=== PATIENT | male | born 1935 | race Caucasian/White ===

== ENCOUNTER 2016-11-18 16:09 | Inpatient (IN) | payer MEDICARE ==
[~2016-11-18] VITALS: Ht 180.3 cm; Wt 121.4 kg
--- NOTE | ~2016-11-18 | ECH ---
Transthoracic Echocardiography Report (TTE) Demographics Patient Name TAL PARADA Date of Study 11/19/2016 Patient Number [id number] Visit Number [id number] Date of 1935 Room Number 432 Accession Number [id number] Gender Male Age 81 year(s) Referring Caty Guidry MD Chief Unit Forester Kera Velez [facility] Physician Physician Interpreting Armond Resendiz Psychiatric Aide Physician MD Supervising Ordering Physician Caty Guidry MD, MD/P Nurse Stress Store Planner Conclusions Summary Technically fair exam. The estimated left ventricular ejection fraction is 55%. Moderate to severe concentric left ventricular hypertrophy. Mildly dilated right ventricle with normal systolic function. The left atrium is mildly dilated by LA volume index measurement. There is no evidence of patent foramen ovale or atrial septal defect by color Doppler. No significant valvular abnormalities. The ascending aorta appears mildly dilated. The maximum diameter measures 3.5 cm. Procedure Type of Study TTE procedure:Echo Complete SF. Procedure Date Date: 11/19/2016 Start: 11:04 AM Technical Quality: Adequate visualization Indications:CVA, Atrial fibrillation and Hypertension. Additional Indications:ordered without bubble study Appropriate Use Criteria: 9 Height: 71 inches Weight: 267 pounds BSA: 2.38 m Rhythm: Paced HR: 66 bpm BP: 173/89 mmHg M-Mode/2D Measurements LV Diastolic Dimension: 3.53 cm LV Systolic Dimension: 3.23 cm LV Septum Diastolic: 1.77 cm LV PW Diastolic: 1.71 cm AO Root Dimension: 2.85 cm Cardiac Output: 5.43 l/min LA Dimension: 4.57 cm Cardiac Index: 2.28 l/min*m RV Diastolic Dimension: 3.66 cm LA volume index: 35 ml/m LVOT: 2.17 cm LVOT VTI: 22.25 cm RV Base: 4.7 cm LV Stroke volume: 82.25 ml RV Mid: 3.5 cm LV Stroke volume index: 34.56 ml/m RV Length: 5.8 cm TAPSE: 2.9 cm TDI-S': 20 cm/s Doppler Measurements AV Peak Velocity: 1.18 m/s MV Peak E-Wave: 1.1 m/s AV Peak Gradient: 5.57 mmHg AV Mean Gradient: 2.56 mmHg MV P1/2t: 67 msec LVOT Peak Velocity: 1.09 m/s AV Area (Continuity):5.1 cm MV Area (PHT): 3.28 cm TR Velocity:2.53 m/s TR Gradient:25.52 mmHg Estimated PASP: 30.52 mmHg Estimated RAP:5 mmHg Estimated RVSP: 31 mmHg RA Area: 23.7 cm Findings Left Ventricle The left ventricle is normal in size . Severe concentric left ventricular hypertrophy. Diastolic function indeterminate due to patient's arrhythmia. Right Ventricle Mildly dilated right ventricle with normal systolic function. Device lead noted in the right ventricle. Left Atrium The left atrium is mildly dilated by LA volume index measurement. There is no evidence of patent foramen ovale or atrial septal defect by color Doppler. Right Atrium The right atrium is mild to moderately dilated. Device lead seen in the right atrium. Mitral Valve Normal mitral valve structure and function. Trivial mitral regurgitation by color Doppler. Aortic Valve The aortic valve was not well imaged. Tricuspid Valve Normal tricuspid valve structure and function. Mild tricuspid regurgitation by color Doppler. Estimated pulmonary pressures within normal limits. Pulmonic Valve Normal pulmonic valve structure and function. Pericardial Effusion No evidence of pericardial effusion. Miscellaneous The ascending aorta appears mildly dilated. The maximum diameter measures 3.5 cm. Pleural Effusion No evidence of pleural effusion. Contractility Score LV regional wall motion:(0-Non visualized 1-Normal 2-Hypokinesis 3-Akinesis 4-Dyskinesis 5-Aneurysm) Signature
--- NOTE | 2016-11-20 15:02 | HP ---
ADMIT: 11/18/2016 RM/LOC: 432 [facility] MR#: [id number] [address] [place], [place] [address] TAL PARADA [address] [place] [address] History and Physical SEX: M AGE: 81 : 1935 DATE OF SERVICE: CHIEF COMPLAINT: Unsteadiness. HISTORY OF PRESENT ILLNESS: The patient is an 81-year-old gentleman, normally receives his care exclusively through the [facility]. He reports about a 2 to 3 day history of just overall not feeling right, feels a little unsteady and somewhat lost when he had been in his own home as well as when driving, just does not feel like himself, some mild confusion almost. Otherwise, denies any weakness, numbness, tingling in extremities. No trouble swallowing. No cough. No recent fevers, chills, nausea, or vomiting. [facility] about [facility] 2 weeks. States he has been high as well as a little bit low in the past, but overall as a rule he is mostly therapeutic in regard to his Coumadin. He has been on it for 4 years, has been a little more erratic now than he was years ago when he 1st started he states. [facility] of [facility] and was subsequently evaluated in the emergency room here. He recently had some visual changes in 1 eye, just feels like he cannot see as well. He went to see an day habilitation supervisor, stated he had a retinal problem. He plans on seeing retinal specialist soon. Has not worsen at all. PAST MEDICAL HISTORY: 1. AFib, status post pacemaker, on chronic anticoagulation. 2. BPH. FAMILY HISTORY: Significant for heart disease in a brother. Otherwise, no strokes that he is aware of. SOCIAL HISTORY: Lives with his . Spends time between [place] and here. Still avidly works. No smoking history. REVIEW OF SYSTEMS: As per HPI. Otherwise, completely reviewed and negative. MEDICATIONS: He is on: 1. Alfuzosin. 2. Allopurinol. 3. Vitamin D3. 4. Lisinopril. 5. Metoprolol. 6. Viagra p.r.n. 7. Trospium p.r.n. 8. Warfarin. 9. Aspirin 81 mg a day. Please see list for full details. PHYSICAL EXAMINATION: VITAL SIGNS: Temperature 97.2, pulse 60, respiratory rate 20, blood pressure 163/87, O2 saturation 97% on room air. GENERAL: He is alert and oriented x3, in no acute distress, very comfortable ADMIT: 11/18/2016 RM/LOC: 432 [facility] MR#: [id number] [address] [address] [facility] TAL SMITH [address] [place] [address] History and Physical SEX: M AGE: 81 : 1935 and very pleasant. HEENT: Normocephalic, atraumatic. Pupils equal, round, and reactive to light and accommodation. Extraocular muscles intact. Moist mucous membranes. NECK: No lymphadenopathy. Soft, supple. Trachea midline. LUNGS: Clear to auscultation bilaterally. No wheezes, rales, or rhonchi. HEART: Regular rate and rhythm. No murmurs, rubs, or gallops. ABDOMEN: Soft, nontender, nondistended. Bowel sounds present. EXTREMITIES: No cyanosis, clubbing, or edema. MUSCULOSKELETAL: 5/5 strength in all 4 extremities. NEUROLOGICAL: No focal deficits noted. Cranial nerves II through XII grossly intact. No facial droop. SKIN: No rashes noted. Dry. PSYCHIATRIC: Very pleasant, normal affect, interacts well with others. LABORATORY AND X-RAY DATA: His INR is 2.3, creatinine 1.2, AST normal at 24. White blood count 8.8, hemoglobin 15.0, platelets 222, potassium 4.2, ALT 18. CT scan of his head shows an area of the low attenuation in medial right posterior parietal lobes suspicious for acute non-hemorrhagic ischemia, low attenuation in the left posterior parietal lobe, probable chronic deep white matter change. ASSESSMENT: 1. Acute stroke. 2. Atrial fibrillation. 3. Hypertension. PLAN: At this point in time, we will allow some permissive hypertension, have Therapy Services see him. We will continue his Coumadin and watch his INR closely. We will get a cardiac duplex ultrasound, lipids, TTE. Await workup. The patient is agreeable to this. Caio Byrne MD/ colby JOB #: [id number] CC: Caio Byrne, Attending Physician Caio Byrne, Family Physician
--- NOTE | 2016-11-20 15:06 | DS ---
ADMIT: 11/18/2016 RM/LOC: 432 [facility] MR#: [id number] [address] [address] TAL PARADA [address] [place] [address] Discharge Summary SEX: M AGE: 81 : 1935 ADMISSION DATE: 11/18/2016 DISCHARGE DATE: 11/19/2016 CONSULTATIONS: None. PROCEDURES: None. FINAL DIAGNOSES: 1. Acute stroke. 2. Hypertension. 3. Atrial fibrillation, on chronic anticoagulation. REASON FOR ADMISSION: The patient is an 81-year-old gentleman, who presented to the emergency room with some confusion, overall not feeling like himself. He ultimately had an extensive workup with a CT scan of his head showing acute stroke, an area of low attenuation medial right posterior parietal lobe. Admitted for further stabilization. The patient's carotid ultrasound showed minimal atherosclerotic disease. Had an echocardiogram with no valvular abnormalities, overall okay. Some LVH. The patient had his lipids checked. LDL was 44. He was therapeutic at 2.35 on his INR when he came in. It was 2.0 when he left. He overall felt safe and stable. His confusion was overall better. He had no troubles with his gait. No residual effect from the stroke. [place] safe and stable for discharge to home. He was seen by therapy services. DISCHARGE INSTRUCTIONS: He will discharge to home and see the [place] primary care provider within the next week. He will follow up for therapy services through his [place] primary care provider, if needed as an outpatient. DISCHARGE MEDICATIONS: For medications he will continue on: 1. Metoprolol. 2. Trospium. 3. Warfarin. 4. Aspirin. 5. Allopurinol. 6. Alfuzosin. 7. Lisinopril. We doubled his lisinopril to 40 mg twice daily. Otherwise, he will remain on his home medications. He will follow up in clinic at the [place]. The patient is agreeable to plan. Caio Byrne MD/ livanf JOB #: [id number] CC: Caio Byrne MD, Attending Physician ADMIT: 11/18/2016 RM/LOC: 432 [facility] MR#: [id number] [facility] [address] [address] TAL PARADA [address] [place] [address] Discharge Summary SEX: M AGE: 81 : 1935 Caio Byrne MD, Family Physician
[2016-11-20] MEDS ORDERED: UROXATRAL10 MG PO (18:04)
[2016-11-20] MEDS ORDERED: LUBRICANT EYE15 M1 OU (18:05)
[2016-11-20] MEDS ORDERED: VITAMIN D-32000 UNI1 PO (18:05)
[2016-11-20] MEDS ORDERED: ZESTRIL DPS40 MG PO (18:05)
[2016-11-20] MEDS ORDERED: ZYLOPRIM-DPS100 MG PO (18:05)
[2016-11-20] MEDS ORDERED: LOPRESSOR DPS50 MG PO (18:06)
[2016-11-20] MEDS ORDERED: SANCTURA20 MG PO (18:06)
[2016-11-20] MEDS ORDERED: COUMADIN6 MG PO (18:06)
[2016-11-20] MEDS ORDERED: COUMADIN4 MG PO (18:07)
[2016-11-20] MEDS ORDERED: ADULT LOW DOSE81 MG PO (18:08)
--- NOTE | 2016-11-23 10:38 | ER ---
ADMIT: 11/18/2016 RM/LOC: 432 [facility] MR#: [id number] [address] [facility] [id number] [place], [place] [address] TAL PARADA [address] [place] [address] Emergency Room Report SEX: M AGE: 81 : 1935 DATE: 11/18/2016 ADDENDUM.: An 81-year-old white male coming in with a little bouts of confusion, [facility], and [facility] had shipped him over here. CT scan does show an area of low attenuation right posterior parietal lobe nonhemorrhagic ischemia as well as left parietal, which is probably chronic. I did speak with Dr. Rivera on that. At this time, his CBC and chemistry are negative, he is on INR, because he has atrial fibrillation, and INR was 2.35. At this time, Dr. Byrne will admit him for further observation and possible placement long distance, however, in the near future, but at this time, he is unable to go home by himself with this. CONDITION ON DISCHARGE: Serious, but stable. Abad Mei MD/ colby JOB #: [id number] CC: Caio Byrne MD, Attending Physician Caio Byrne MD, Family Physician
== END 2016-11-19 15:18 | disposition home or self-care (01) | DRG 66 ==
LOC: ER 16:09 → 4PCU 18:00
PROVIDERS: ADMIT Internal Medicine
DX: I63.9 Cerebral infarction, unspecified (principal); I48.91 Unspecified atrial fibrillation; N40.0 Benign prostatic hyperplasia without lower urinary tract symptoms; I10 Essential (primary) hypertension; Z79.01 Long term (current) use of anticoagulants; Z95.0 Presence of cardiac pacemaker; Z79.82 Long term (current) use of aspirin